=== PATIENT | female | born 1940 | race Caucasian/White ===

== ENCOUNTER 2016-10-28 16:09 | Emergency (ER) | payer MEDICARE ==
[~2016-10-28] VITALS: Ht 165.1 cm; Wt 90.3 kg
[~2016-10-28 16:09] MED LIST: ATOR20TA18 PO; CHOLESTEROL; ESTR0.3T26 PO; LISI-126 PO
--- OUTSIDE RECORDS SUMMARY | 2016-10-28 16:13 | XMS REPORT | Continuity of Care Document ---
Author Author Luda Gupta Ambulatory Address Unknown Phone Unavailable Care Team Providers Care Real Estate Development Manager Name Role Phone Irene Faith PP Unavailable Payers Payer name Insurance type Covered green party ID Authorization(s) Unknown Problems Condition Effective Dates (start - stop) Clinical Status Syncope and collapse - Persistent Vaginitis - *Acute Hypertension, Unspecified - *Chronic Hypothyroidism - *Chronic Hypercholesterolemia - *Chronic Ulcerative colitis - *Chronic Hormone replacement therapy (postmenopausal) - *Stable Skin tag - *Routine Vaginitis - *Acute Benign neoplasm of other specified sites of skin - Hypothyroidism - *Controlled Hypercholesterolemia - *Controlled Hypertension - *Controlled Hyperkalemia - Asymptomatic Candidiasis of vulva and vagina - *Acute Acute renal insufficiency - Asymptomatic Hypothyroidism - *Poor control Hypertension, Unspecified - *Chronic Hypercholesterolemia - *Controlled Hormone replacement therapy (postmenopausal) - *Stable Family History Family Member Diagnosis Age At Onset Status Mother (Unknown) Cancer - thyroid Yes Father (Unknown) Cancer - renal Yes Social History Social History Element Description Quantity alcohol Allergies, Adverse Reactions, Alerts Substance Reaction Severity Status Unknown Medications Medication Instructions Dosage Effective Dates (start - stop) Status Calmoseptine 0.44 %-20.625 % topical ointment apply 1 by Topical route 2 times every effected area 0 - Active Premarin 0.3 mg tablet Take 1 tablet by mouth every day. - Active simvastatin 20 mg tablet Take 1 tablet by mouth every day. - Active Asacol HD 800 mg tablet,delayed release Take 1 capsule by mouth 3 times a day. - Active lisinopril 20 mg-hydrochlorothiazide 25 mg tablet Take 1 tablet by mouth every day. - Active Synthroid 75 mcg tablet take 1 tablet (75MCG) by oral route every day 75 MCG - Active alprazolam 0.5 mg tablet take 1 - 2 tablet (0.5MG) by ORAL route prior to procedure - Active Immunizations Vaccine Date Status Comments Fluzone HD completed - Completed reason: previously given Results Test Name Date and Time Measure Units Reference Range Abnormal Flag Comments Panel Description: Basic Metabolic Panel (BMP) Glucose 16:00:00 76 mg/dL 70-99 BUN 16:00:00 22 mg/dL 10-20 H Creatinine 16:00:00 1.15 mg/dL 0.57-1.11 H Calcium 16:00:00 9.9 mg/dL 8.9-10.5 Sodium 16:00:00 138 mEq/L 135-144 Potassium 16:00:00 3.9 mEq/L 3.5-5.2 Chloride 16:00:00 102 mEq/L 99-111 CO2 16:00:00 25 mEq/L 22-31 Anion Gap 16:00:00 11 3-20 Panel Description: eGFR eGFR 16:00:00 46 mL/min >60 A Multiply eGFR results by 1.21 for race. Panel Description: TSH TSH 16:00:00 3.16 uIU/mL 0.35-4.94 Vital Signs Date / Time: Height Weight Pulse Rate Blood Pressure Temperature /14:35:00 65.00 in 195.80 lbs 64 /min 150/70 mm[Hg] 97.0 F Procedures Procedure Date Unknown Encounters Encounter Location Date Patient Visit [facility] Patient Visit [facility] Patient Visit [facility] Patient Visit [facility] Patient Visit [facility] Patient Visit [facility] Patient Visit [facility] Patient Visit [facility] Patient Visit [facility] Patient Visit [facility] Advance Directives Directive Effective Date Unknown
--- OUTSIDE RECORDS SUMMARY | 2016-10-28 16:13 | XMS REPORT | Referral Summary ---
Author Author [facility] Organization [facility] Address Unknown Phone Unavailable Care Team Providers Care Retort Press Operator Name Role Phone Caterina Thomas Primary Care Physician [phone] Encounter [facility] [id number] Date(s): 02/01/15 - 02/01/15 [facility] [address] [place], [place] [address] Discharge Diagnosis: Serum creatinine elevated Discharge Diagnosis: Osteoporosis screening Discharge Diagnosis: Need for pneumococcal vaccine Discharge Diagnosis: Hormone replacement therapy Discharge Diagnosis: OTHER AND UNSPECIFIED HYPERLIPIDEMIA Discharge Diagnosis: Ulcerative colitis Discharge Diagnosis: UNSPECIFIED ESSENTIAL HYPERTENSION Discharge Diagnosis: UNSPECIFIED HYPOTHYROIDISM Discharge Diagnosis: Abnormal CT Discharge Disposition: 01-Home or Self Care Attending Physician: Caterina Thomas DO Admitting Physician: Caterina Thomas DO Vital Signs Most recent to 1 oldest [Reference Range]: Peripheral Pulse 76 bpm Rate [60-100 bpm] (02/01/15 9:04 AM) Respiratory Rate 18 br/min [14-20 br/min] (02/01/15 9:04 AM) Blood Pressure 120/76 mmHg [90-140/60-90 mmHg] (02/01/15 9:04 AM) Problem List Condition Effective Dates Status Health Status Informant Symptomatic 02/21/10 - 06/30/14 Resolved cholelithiasis(Confi rmed)1 Hormone replacement Active therapy(Confirmed) High < 06/30/14 Resolved cholesterol(Confirme d) Hyperlipidemia(Confi 1989 Active rmed) Hypertension(Confirm Active ed) UNSPECIFIED Active HYPOTHYROIDISM(Confi rmed) Heavy menstrual 1967 - 06/30/14 Resolved bleeding(Confirmed)2 Obesity(Confirmed) Active patient Osteoarthritis(Confi Active rmed) Ulcerative 2003 Active colitis(Confirmed) Fibroids(Confirmed)3 1967 - 06/30/14 Resolved 1laparoscopic cholecystectomy 8-26-10 2TAH and one oophorectomy 3TAH and one oophorectomy Allergies, Adverse Reactions, Alerts No Known Medication Allergies Medications aspirin 81 mg oral tablet 1 tabs, Oral, Daily, 0 Refill(s) Start Date: 07/05/14 Status: Ordered estradiol 0.5 mg oral tablet 0.5 mg 1 tabs, Oral, Daily, # 90 tabs, 3 Refill(s), Pharmacy: [facility], 1 tabs Oral Daily Start Date: 08/08/15 Status: Ordered lisinopril-hydrochlorothiazide 20 mg-25 mg oral tablet 1 tabs, Oral, Daily, # 90 tabs, 3 Refill(s), Pharmacy: [facility] Start Date: 08/08/15 Status: Ordered simvastatin 20 mg oral tablet 20 mg 1 tabs, Oral, Bedtime (once a day), # 90 tabs, 3 Refill(s), Pharmacy: [facility], 1 tabs Oral Bedtime (once a day) Start Date: 08/08/15 Status: Ordered Synthroid 75 mcg (0.075 mg) oral tablet 75 mcg 1 tabs, Oral, Daily, # 90 tabs, 3 Refill(s), Pharmacy: [facility], 1 tabs Oral Daily Start Date: 08/08/15 Status: Ordered Results Hematology Most recent to 1 oldest [Reference Range]: WBC [4.8-10.8 6.5 10*3/uL 10*3/uL] (02/01/15 10:00 AM) RBC [4.00-5.20 4.79 10*6/uL 10*6/uL] (02/01/15 10:00 AM) Hgb [12.0-16.0 13.9 gm/dL gm/dL] (02/01/15 10:00 AM) Hct [37.0-47.0 %] 41.3 % (02/01/15 10:00 AM) MCV [82.0-99.0 fL] 86.2 fL (02/01/15 10:00 AM) MCH [27.0-32.0 pg] 29.0 pg (02/01/15 10:00 AM) MCHC [32.0-36.0 33.7 gm/dL gm/dL] (02/01/15 10:00 AM) RDW [11.5-14.5 %] 14.0 % (02/01/15 10:00 AM) Platelet [150-400 340 10*3/uL 10*3/uL] (02/01/15 10:00 AM) MPV [8.8-14.8 fL] 10.4 fL (02/01/15 10:00 AM) Immature 0.2 % Granulocytes (02/01/15:00 AM) [0.0-1.0 %] Neutrophils [51-75 58 % %] (02/01/15 10:00 AM) Lymphocytes [20-46 28 % %] (02/01/15 10:00 AM) Monocytes [4-11 %] 8 % (02/01/15 10:00 AM) Eosinophils [0-4 %] 5 % *HI* (02/01/15 10:00 AM) Basophils [0-2 %] 1 % (02/01/15 10:00 AM) Neutro Absolute 3.78 10*3 [1.90-7.00 10*3] (02/01/15 10:00 AM) Lymph Absolute 1.85 10*3 [0.80-3.30 10*3] (02/01/15 10:00 AM) Mcintosh Absolute 0.51 10*3 [0.30-1.00 10*3] (02/01/15 10:00 AM) Eos Absolute 0.32 10*3 [0.00-0.50 10*3] (02/01/15 10:00 AM) Baso Absolute 0.04 10*3 [0.00-0.20 10*3] (02/01/15 10:00 AM) Chemistry Most recent to 1 oldest [Reference Range]: Sodium Lvl [135-144 142 mEq/L mEq/L] (02/01/15 10:00 AM) Potassium Lvl 4.6 mEq/L [3.5-5.2 mEq/L] (02/01/15 10:00 AM) Chloride [99-111 105 mEq/L mEq/L] (02/01/15 10:00 AM) CO2 [22-31 mEq/L] 28 mEq/L (02/01/15 10:00 AM) AGAP [3-20] 9 (02/01/15 10:00 AM) BUN [10-20 mg/dL] 26 mg/dL *HI* (02/01/15 10:00 AM) Glucose Lvl [70-99 103 mg/dL mg/dL] *HI* (02/01/15 10:00 AM) Creatinine Lvl 1.22 mg/dL [0.57-1.11 mg/dL] *HI* (02/01/15 10:00 AM) eGFR [>60 mL/min] 43 mL/min 1 *ABN* (02/01/15 10:00 AM) Calcium Lvl 10.1 mg/dL [8.9-10.5 mg/dL] (02/01/15 10:00 AM) Albumin Lvl [3.4-4.8 4.7 gm/dL gm/dL] (02/01/15 10:00 AM) Total Protein 8.0 gm/dL [6.2-8.1 gm/dL] (02/01/15 10:00 AM) Globulin [1.8-4.0 3.3 gm/dL gm/dL] (02/01/15 10:00 AM) ALT [0-55 U/L] 17 U/L (02/01/15 10:00 AM) AST [5-34 U/L] 21 U/L (02/01/15 10:00 AM) Alk Phos [40-150 93 U/L U/L] (02/01/15 10:00 AM) Bili Total [0.2-1.2 0.6 mg/dL mg/dL] (02/01/15 10:00 AM) Chol [0-199 mg/dL] 175 mg/dL 2 (02/01/15 10:00 AM) Trig [0-149 mg/dL] 137 mg/dL (02/01/15 10:00 AM) HDL [40-84 mg/dL] 52 mg/dL (02/01/15 10:00 AM) LDL [0-130 mg/dL] 96 mg/dL (02/01/15 10:00 AM) VLDL Cholesterol 27 mg/dL [0-28 mg/dL] (02/01/15 10:00 AM) Cardiac Risk 3.4 [0.0-5.0] (02/01/15 10:00 AM) TSH with Reflex Free 1.41 T4 [0.35-4.94] (02/01/15 10:00 AM) 1Result Comment: Multiply eGFR results by 1.21 for race. 2Result Comment: 12 hours fasting. Meds taken as directed. Immunizations Vaccine Date Refusal Reason influenza virus vaccine, inactivated 08/08/15 influenza virus vaccine, live 03/22/13 pneumococcal 13-valent conjugate vaccine 02/01/15 Procedures Procedure Date Related Diagnosis Body Site Cholecystectomy 2010 Implantable loop recorder 2010 Intraoperative cholangiogram1 02/21/10 Laparoscopic cholecystectomy2 02/21/10 Colonoscopy3 11/04/07 Knee replacement L 2005 Colonoscopy1989 GAUTAM and one oophorectomy 1967 Knee replacement R 1symptomatic cholelithiasis 2symptomatic cholelithiasis 3Diffuse moderate chronic colitis consisent with lymphocytic colitis. Sigmoid diverticulosis. Plan repeat colonoscopy in 10 years 4Cscope=Colitis Social History Social History Type Response Smoking Status Never smoker Assessment and Plan Extracted from: Title: Ambulatory Patient Education Author: Caterina Thomas DO Date: Hypothyroidism The thyroid is a large gland located in the lower front of your neck. The thyroid gland helps control metabolism. Metabolism is how your body handles food. It controls metabolism with the hormone thyroxine. When this gland is underactive (hypothyroid), it produces too little hormone. CAUSES These include: Absence or destruction of thyroid tissue. Goiter due to iodine deficiency. Goiter due to medications. Congenital defects (since ). Problems with the pituitary. This causes a lack of TSH (thyroid stimulating hormone). This hormone tells the thyroid to turner off more hormone. SYMPTOMS Lethargy (feeling as though you have no energy) Cold intolerance Weight gain (in spite of normal food intake) Dry skin Coarse hair Menstrual irregularity (if severe, may lead to infertility) Slowing of thought processes Cardiac problems are also caused by insufficient amounts of thyroid hormone. Hypothyroidism in the is cretinism, and is an extreme form. It is important that this form be treated adequately and immediately or it will lead rapidly to retarded physical and mental development. DIAGNOSIS To prove hypothyroidism, your caregiver may do blood tests and ultrasound tests. Sometimes the signs are hidden. It may be necessary for your caregiver to watch this illness with blood tests either before or after diagnosis and treatment. TREATMENT Low levels of thyroid hormone are increased by using synthetic thyroid hormone. This is a safe, effective treatment. It usually takes about four weeks to gain the full effects of the medication. After you have the full effect of the medication, it will generally take another four weeks for problems to leave. Your caregiver may start you on low doses. If you have had heart problems the dose may be gradually increased. It is generally not an emergency to get rapidly to normal. HOME CARE INSTRUCTIONS Take your medications as your caregiver suggests. Let your caregiver know of any medications you are taking or start taking. Your caregiver will help you with dosage schedules. As your condition improves, your dosage needs may increase. It will be necessary to have continuing blood tests as suggested by your caregiver. Report all suspected medication side effects to your caregiver. SEEK MEDICAL CARE IF: Seek medical care if you develop: Sweating. Tremulousness (tremors). Anxiety. Rapid weight loss. Heat intolerance. Emotional swings. Diarrhea. Weakness. SEEK IMMEDIATE MEDICAL CARE IF: You develop chest pain, an irregular heart beat (palpitations), or a rapid heart beat. MAKE SURE YOU: Understand these instructions. Will watch your condition. Will get help right away if you are not doing well or get worse. Document Released: 06/15/2006 Document Revised: 09/06/2012 Document Reviewed: [employer] Patient Information 2015 [employer]. This information is not intended to replace advice given to you by your health care provider. Make sure you discuss any questions you have with your health care provider. No follow up information was provided. Extracted from: Title: MARIO ALBERTO/Chronic conditions Author: Caterina Thomas DO Date: 02/01/15 Assessment/Plan 1.Osteoporosis screening Information provided to patient to schedule for a dexa scan. Encouraged regular intake of calcium and vitamin D along with weight bearing exercises. She will return for her medicare wellness exam in 6 months. Ordered: BD Bone Density DEXA Axial Skeleton Office Visit Level 4 Est 81465 2.OTHER AND UNSPECIFIED HYPERLIPIDEMIA Lipid panel due. She will return to have blood work done. Continue on simvastatin at current dosage for now. Ordered: Lipid Panel Office Visit Level 4 Est 74635 3.Ulcerative colitis Stable - continue follow up with Dr. Haines. Continue on the fiber as that seems to have helped her significantly with her syncopal episodes and diarrhea episodes. Ordered: Office Visit Level 4 Est 00144 4.UNSPECIFIED ESSENTIAL HYPERTENSION BP stable. Continue on the lisinopril /hctz. She will return for blood work. Ordered: CBC w/ Differential Comprehensive Metabolic Panel Office Visit Level 4 Est 07706 5.UNSPECIFIED HYPOTHYROIDISM TSH due - she will return for blood work. Continue on levothyroxine for now. Ordered: Office Visit Level 4 Est 09784 TSH with Reflex Free T4 6.Hormone replacement therapy Will attempt to send out the estradiol again to see ifwe can do a prior authorization. Have reviewed the risks associated with mcc hormone replacement and pt expresses understanding. At this point, it is very bothersome to her and would like to get back on hormone replacement daily. Ordered: Office Visit Level 4 Est 35664 7.Need for pneumococcal vaccine pneumococcal 13 administered today. Ordered: Office Visit Level 4 Est 08250 Orders: estradiol, 0.5 mg 1 tabs, Oral, Daily, # 90 tabs, 3 Refill(s), Pharmacy: [facility], 1 tabs Oral Daily
--- OUTSIDE RECORDS SUMMARY | 2016-10-28 16:13 | XMS REPORT | Referral Summary ---
Author Author [facility] Organization [facility] Address Unknown Phone Unavailable Care Team Providers Care Filter Tank Operator Name Role Phone Caterina Thomas Primary Care Physician [phone] Encounter VC Date(s): 08/08/15 - 08/08/15 [facility] [address] [place], [place] [address] Discharge Diagnosis: Medicare annual wellness visit, subsequent Discharge Diagnosis: Osteoporosis screening Discharge Diagnosis: Simple cyst of kidney Discharge Disposition: -Home or Self Care Attending Physician: Caterina Thomas DO Admitting Physician: Caterina Thomas DO Vital Signs Most recent to 1 oldest [Reference Range]: Peripheral Pulse 64 bpm Rate [60-100 bpm] (08/08/15 9:56 AM) Respiratory Rate 16 br/min [14-20 br/min] (08/08/15 9:56 AM) Blood Pressure 130/80 mmHg [90-140/60-90 mmHg] (08/08/15 9:56 AM) SpO2 99 % (08/08/15 9:56 AM) Problem List Condition Effective Dates Status Health Status Informant Symptomatic 02/21/10 - 06/30/14 Resolved cholelithiasis(Confi rmed)1 Hormone replacement Active therapy(Confirmed) High < 06/30/14 Resolved cholesterol(Confirme d) Hyperlipidemia(Confi 1989 Active rmed) Hypertension(Confirm Active ed) UNSPECIFIED Active HYPOTHYROIDISM(Confi rmed) Heavy menstrual 1967 - 06/30/14 Resolved bleeding(Confirmed)2 Obesity(Confirmed) Active patient Osteoarthritis(Confi Active rmed) Ulcerative 2002 Active colitis(Confirmed) Fibroids(Confirmed)3 1967 - 06/30/14 Resolved 1laparoscopic cholecystectomy 02-21-10 2TAH and one oophorectomy 3TAH and one oophorectomy Allergies, Adverse Reactions, Alerts No Known Medication Allergies Medications aspirin 81 mg oral tablet 1 tabs, Oral, Daily, 0 Refill(s) Start Date: 07/05/14 Status: Ordered estradiol 0.5 mg oral tablet 0.5 mg 1 tabs, Oral, Daily, # 90 tabs, 3 Refill(s), Pharmacy: [facility], 1 tabs Oral Daily Start Date: 08/08/15 Status: Ordered lisinopril-hydrochlorothiazide 20 mg-25 mg oral tablet 1 tabs, Oral, Daily, # 90 tabs, 3 Refill(s), Pharmacy: [facility] Start Date: 08/08/15 Status: Ordered simvastatin 20 mg oral tablet 20 mg 1 tabs, Oral, Bedtime (once a day), # 90 tabs, 3 Refill(s), Pharmacy: [facility], 1 tabs Oral Bedtime (once a day) Start Date: 08/08/15 Status: Ordered Synthroid 75 mcg (0.075 mg) oral tablet 75 mcg 1 tabs, Oral, Daily, # 90 tabs, 3 Refill(s), Pharmacy: [facility], 1 tabs Oral Daily Start Date: 08/08/15 Status: Ordered Results No data available for this section Immunizations Vaccine Date Refusal Reason influenza virus vaccine, inactivated 08/08/15 influenza virus vaccine, live 03/22/13 pneumococcal 13-valent conjugate vaccine 02/01/15 Procedures Procedure Date Related Diagnosis Body Site Cholecystectomy 2010 Implantable loop recorder 2010 Intraoperative cholangiogram1 02/21/10 Laparoscopic cholecystectomy2 02/21/10 Colonoscopy3 11/04/07 Knee replacement L 2005 Colonoscopy4 1989 GAUTAM and one oophorectomy 1968 Knee replacement R 1symptomatic cholelithiasis 2symptomatic cholelithiasis 3Diffuse moderate chronic colitis consisent with lymphocytic colitis. Sigmoid diverticulosis. Plan repeat colonoscopy in 10 years 4Cscope=Colitis Social History Social History Type Response Smoking Status Never smoker Assessment and Plan Extracted from: Title: Ambulatory Patient Education Author: Caterina Thomas DO Date: Health Maintenance Adopting a healthy lifestyle and getting preventive care can go a long way to promote health and wellness. Talk with your health care provider about what schedule of regular examinations is right for you. This is a good chance for you to check in with your provider about disease prevention and staying healthy. In between checkups, there are plenty of things you can do on your own. Experts have done a lot of research about which lifestyle changes and preventive measures are most likely to keep you healthy. Ask your health care provider for more information. WEIGHT AND DIET Eat a healthy diet Be sure to include plenty of vegetables, fruits, low-fat dairy products, and lean protein. Do not eat a lot of foods high in solid fats, added sugars, or salt. Get regular exercise. This is one of the most important things you can do for your health. Most adults should exercise for at least 150 minutes each week. The exercise should increase your heart rate and make you sweat (moderate-intensity exercise). Most adults should also do strengthening exercises at least twice a week. This is in addition to the moderate-intensity exercise. Maintain a healthy weight Body mass index (BMI) is a measurement that can be used to identify possible weight problems. It estimates body fat based on height and weight. Your health care provider can help determine your BMI and help you achieve or maintain a healthy weight. For females 20 years of age and older: A BMI below 18.5 is considered underweight. A BMI of 18.5 to 24.9 is normal. A BMI of 25 to 29.9 is considered overweight. A BMI of 30 and above is considered obese. Watch levels of cholesterol and blood lipids You should start having your blood tested for lipids and cholesterol at 20 years of age, then have this test every 5 years. You may need to have your cholesterol levels checked more often if: Your lipid or cholesterol levels are high. You are older than 50 years of age. You are at high risk for heart disease. CANCER SCREENING Lung Cancer Lung cancer screening is recommended for adults 5580 years old who are at high risk for lung cancer because of a history of smoking. A yearly low-dose CT scan of the lungs is recommended for people who: Currently smoke. Have quit within the past 15 years. Have at least a 90-[id number] history of smoking. A pack year is smoking an average of one pack of cigarettes a day for 1 year. Yearly screening should continue until it has been 15 years since you quit. Yearly screening should stop if you develop a health problem that would prevent you from having lung cancer treatment. Breast Cancer Practice breast self-awareness. This means understanding how your breasts normally appear and feel. It also means doing regular breast self-exams. Let your health care provider know about any changes, no matter how small. If you are in your 20s or 30s, you should have a clinical breast exam ( CBE) by a health care provider every 13 years as part of a regular health exam. If you are 40 or older, have a CBE every year. Also consider having a breast X-ray (mammogram) every year. If you have a family history of breast cancer, talk to your health care provider about genetic screening. If you are at high risk for breast cancer, talk to your health care provider about having an MRI and a mammogram every year. Breast cancer gene (BRCA) assessment is recommended for women who have family members with BRCA-related cancers. BRCA-related cancers include: Breast. Ovarian. Tubal. Peritoneal cancers. Results of the assessment will determine the need for genetic counseling and BRCA1 and BRCA2 testing. Cervical Cancer Your health care provider may recommend that you be screened regularly for cancer of the pelvic organs (ovaries, uterus, and vagina). This screening involves a pelvic examination, including checking for microscopic changes to the surface of your cervix (Pap test). You may be encouraged to have this screening done every 3 years, beginning at age 21. For women ages 3065, health care providers may recommend pelvic exams and Pap testing every 3 years, or they may recommend the Pap and pelvic exam, combined with testing for human papilloma virus (HPV), every 5 years. Some types of HPV increase your risk of cervical cancer. Testing for HPV may also be done on women of any age with unclear Pap test results. Other health care providers may not recommend any screening for non women who are considered low risk for pelvic cancer and who do not have symptoms. Ask your health care provider if a screening pelvic exam is right for you. If you have had past treatment for cervical cancer or a condition that could lead to cancer, you need Pap tests and screening for cancer for at least 20 years after your treatment. If Pap tests have been discontinued, your risk factors (such as having a new sexual partner) need to be reassessed to determine if screening should resume. Some women have medical problems that increase the chance of getting cervical cancer. In these cases, your health care provider may recommend more frequent screening and Pap tests. Colorectal Cancer This type of cancer can be detected and often prevented. Routine colorectal cancer screening usually begins at 50 years of age and continues through 75 years of age. Your health care provider may recommend screening at an earlier age if you have risk factors for colon cancer. Your health care provider may also recommend using home test kits to check for hidden blood in the stool. A small camera at the end of a tube can be used to examine your colon directly (sigmoidoscopy or colonoscopy). This is done to check for the earliest forms of colorectal cancer. Routine screening usually begins at age 50. Direct examination of the colon should be repeated every 510 years through 75 years of age. However, you may need to be screened more often if early forms of precancerous polyps or small growths are found. Skin Cancer Check your skin from head to toe regularly. Tell your health care provider about any new moles or changes in moles, especially if there is a change in a mole's shape or color. Also tell your health care provider if you have a mole that is larger than the size of a pencil eraser. Always use sunscreen. Apply sunscreen liberally and repeatedly throughout the day. Protect yourself by wearing long sleeves, pants, a wide-brimmed hat, and sunglasses whenever you are outside. HEART DISEASE, DIABETES, AND HIGH BLOOD PRESSURE Have your blood pressure checked at least every 12 years. High blood pressure causes heart disease and increases the risk of stroke. If you are between 55 years and 79 years old, ask your health care provider if you should take aspirin to prevent strokes. Have regular diabetes screenings. This involves taking a blood sample to check your fasting blood sugar level. If you are at a normal weight and have a low risk for diabetes, have this test once every three years after 45 years of age. If you are overweight and have a high risk for diabetes, consider being tested at a younger age or more often. PREVENTING INFECTION Hepatitis B If you have a higher risk for hepatitis B, you should be screened for this virus. You are considered at high risk for hepatitis B if: You were born in a country where hepatitis B is common. Ask your health care provider which countries are considered high risk. Your parents were born in a high-risk country, and you have not been immunized against hepatitis B (hepatitis B vaccine). You have HIV or AIDS. You use needles to inject street drugs. You live with someone who has hepatitis B. You have had sex with someone who has hepatitis B. You get hemodialysis treatment. You take certain medicines for conditions, including cancer, organ transplantation, and autoimmune conditions. Hepatitis C Blood testing is recommended for: Everyone born from 1945 through 1965. Anyone with known risk factors for hepatitis C. Sexually transmitted infections (STIs) You should be screened for sexually transmitted infections (STIs) including gonorrhea and chlamydia if: You are sexually active and are younger than 24 years of age. You are older than 24 years of age and your health care provider tells you that you are at risk for this type of infection. Your sexual activity has changed since you were last screened and you are at an increased risk for chlamydia or gonorrhea. Ask your health care provider if you are at risk. If you do not have HIV, but are at risk, it may be recommended that you take a prescription medicine daily to prevent HIV infection. This is called pre- exposure prophylaxis (PrEP). You are considered at risk if: You are sexually active and do not regularly use condoms or know the HIV status of your partner(s). You take drugs by injection. You are sexually active with a partner who has HIV. Talk with your health care provider about whether you are at high risk of being infected with HIV. If you choose to begin PrEP, you should first be tested for HIV. You should then be tested every 3 months for as long as you are taking PrEP. If you are premenopausal and you may become , ask your health care provider about preconception counseling. If you may become , take 400 to 800 micrograms (mcg) of folic acid every day. If you want to prevent , talk to your health care provider about control (contraception). OSTEOPOROSIS AND MENOPAUSE Osteoporosis is a disease in which the bones lose minerals and strength with aging. This can result in serious bone fractures. Your risk for osteoporosis can be identified using a bone density scan. If you are 65 years of age or older, or if you are at risk for osteoporosis and fractures, ask your health care provider if you should be screened. Ask your health care provider whether you should take a calcium or vitamin D supplement to lower your risk for osteoporosis. Menopause may have certain physical symptoms and risks. Hormone replacement therapy may reduce some of these symptoms and risks. Talk to your health care provider about whether hormone replacement therapy is right for you. HOME CARE INSTRUCTIONS Schedule regular health, dental, and eye exams. Stay current with your immunizations. Do not use any tobacco products including cigarettes, chewing tobacco, or electronic cigarettes. If you are , do not drink alcohol. If you are , limit how much and how often you drink alcohol. Limit alcohol intake to no more than 1 drink per day for non women. One drink equals 12 ounces of beer, 5 ounces of wine, or 1 ounces of hard liquor. Do not use street drugs. Do not share needles. Ask your health care provider for help if you need support or information about quitting drugs. Tell your health care provider if you often feel depressed. Tell your health care provider if you have ever been abused or do not feel safe at home. This information is not intended to replace advice given to you by your health care provider. Make sure you discuss any questions you have with your health care provider. Document Released: 12/29/2011 Document Revised: 04/03/2015 Document Reviewed: [facility] Patient Information 2015 [employer]. No follow up information was provided. Extracted from: Title: AWE-Medicare Author: Caterina Thomas DO Date: 08/08/15 Assessment/Plan 1.Medicare annual wellness visit, subsequent Routine physical performed. Mammogram is up to date. Colonoscopy is up to date. Vaccines reviewed - updated on flu, and will check pricing on Td and return to have this done. DEXA due and she will schedule this. Senior health assessment reviewed. DPOA and living will are in place. Education provided. Ordered: Annual Wellness exam Subsequent G0439 2.Simple cyst of kidney Imaging reviewed and recommendation to recheck lesion in 6-12 months after imaging in January. Pt was given information to schedule and she will schedule to have this repeated in the summer. Ordered: Annual Wellness exam Subsequent G0439 US Retroperitoneal Complete 3.Osteoporosis screening Information for dexa provided and she will call to make an appointment. Encouraged regular exercise and calcium/vitamin D supplementation. Ordered: Annual Wellness exam Subsequent G0439 BD Bone Density DEXA Axial Skeleton 4.Need for vaccination Updated on flu shot. Will check on pricing for TD and administer at next appt. Ordered: Annual Wellness exam Subsequent G0439 Orders: estradiol, 0.5 mg 1 tabs, Oral, Daily, # 90 tabs, 3 Refill(s), [facility], 1 tabs Oral Daily levothyroxine, 75 mcg 1 tabs, Oral, Daily, # 90 tabs, 3 Refill(s), Pharmacy: [facility], 1 tabs Oral Daily lisinopril-hydrochlorothiazide, 1 tabs, Oral, Daily, # 90 tabs, 3 Refill(s), Pharmacy: [facility] simvastatin, 20 mg 1 tabs, Oral, Bedtime (once a day), # 90 tabs, 3 Refill(s) , Pharmacy: [facility], 1 tabs Oral Bedtime (once a day) CBC w/ Differential Comprehensive Metabolic Panel Lipid Panel TSH with Reflex Free T4
--- OUTSIDE RECORDS SUMMARY | 2016-10-28 16:13 | XMS REPORT | Continuity of Care Document ---
Author Author [facility] Organization [facility] Address Unknown Phone Unavailable Allergies Active Description Code Type Severity Reaction Onset Reported/Identified Relationship to Patient Clinical Status Yes No Allergy Information Drug Allergy N/A N/A 07/19/2013 Medications Problems Date Dx Coded Attending Type Code Diagnosis Diagnosed By 07/19/2013 Guevara Gonzalez MD Final 556.9 ULCERATIVE COLITIS NOS 07/19/2013 Guevara Gonzalez MD Final 780.2 SYNCOPE COLLAPSE Procedures Results Encounters ACCT No. Visit Date/Time Discharge Status Pt. Type Provider Facility Loc./Unit Complaint [id number] 07/19/2013 14:49:00 2013 17:25:00 DIS Emergency Guevara Gonzalez MD [facility] [address] [facility]
--- OUTSIDE RECORDS SUMMARY | 2016-10-28 16:13 | XMS REPORT | Referral Summary ---
Author Author [facility] Organization [facility] Address Unknown Phone Unavailable Care Team Providers Care Manager Payment Name Role Phone Caterina Thomas Primary Care Physician [phone] Encounter VC Date(s): 05/01/16 - 05/01/16 [facility] [address] [place], [place] [address] Discharge Diagnosis: Low back pain Discharge Diagnosis: Depression Discharge Diagnosis: Chronic kidney disease Discharge Disposition: 01-Home or Self Care Attending Physician: Caterina Thomas DO Admitting Physician: Caterina Thomas DO Vital Signs Most recent to 1 oldest [Reference Range]: Peripheral Pulse 64 bpm Rate [60-100 bpm] (05/01/16 8:59 AM) Respiratory Rate 16 br/min [14-20 br/min] (05/01/16 8:59 AM) Blood Pressure 110/80 mmHg [90-140/60-90 mmHg] (05/01/16 8:59 AM) Problem List Condition Effective Dates Status Health Status Informant Symptomatic 02/21/10 - 06/30/14 Resolved cholelithiasis(Confi rmed)1 Hormone replacement Active therapy(Confirmed) High < 06/30/14 Resolved cholesterol(Confirme d) Hyperlipidemia(Confi 1989 Active rmed) Hypertension(Confirm Active ed) UNSPECIFIED Active HYPOTHYROIDISM(Confi rmed) Heavy menstrual 1967 - 06/30/14 Resolved bleeding(Confirmed)2 Depression(Confirmed Active ) Obesity(Confirmed) Active patient Osteoarthritis(Confi Active rmed) Ulcerative 2003 Active colitis(Confirmed) Fibroids(Confirmed)3 1967 - 06/30/14 Resolved 1laparoscopic cholecystectomy 02-21-10 2TAH and one oophorectomy 3TAH and one oophorectomy Allergies, Adverse Reactions, Alerts No Known Medication Allergies Medications aspirin 81 mg oral tablet 1 tabs, Oral, Daily, 0 Refill(s) Start Date: 07/05/14 Status: Ordered Cymbalta 30 mg oral delayed release capsule See Instructions, Take one capsule daily, # 90 caps, 3 Refill(s), Pharmacy: [facility], Take one capsule daily Start Date: 05/01/16 Status: Ordered estradiol 0.5 mg oral tablet 0.5 mg 1 tabs, Oral, Daily, # 90 tabs, 3 Refill(s), Pharmacy: [facility], 1 tabs Oral Daily Start Date: 08/08/15 Status: Ordered lisinopril-hydrochlorothiazide 20 mg-25 mg oral tablet 1 tabs, Oral, Daily, # 90 tabs, 3 Refill(s), Pharmacy: [facility] Start Date: 08/08/15 Status: Ordered meloxicam 15 mg oral tablet 15 mg 1 tabs, Oral, Daily, # 90 tabs, 0 Refill(s), Pharmacy: [id number], 1 tabs Oral Daily Start Date: 03/31/16 Status: Ordered simvastatin 20 mg oral tablet 20 mg 1 tabs, Oral, Bedtime (once a day), # 90 tabs, 3 Refill(s), Pharmacy: [facility], 1 tabs Oral Bedtime (once a day) Start Date: 08/08/15 Status: Ordered Synthroid 75 mcg (0.075 mg) oral tablet 75 mcg 1 tabs, Oral, Daily, # 90 tabs, 3 Refill(s), Pharmacy: [facility], 1 tabs Oral Daily Start Date: 08/08/15 Status: Ordered Results No data available for this section Immunizations Vaccine Date Refusal Reason influenza virus vaccine, inactivated 05/01/16 influenza virus vaccine, inactivated 08/08/15 influenza virus vaccine, live 03/22/13 pneumococcal 13-valent conjugate vaccine 02/01/15 pneumococcal 23-polyvalent vaccine 05/01/16 Procedures Procedure Date Related Diagnosis Body Site Cholecystectomy 2011 Implantable loop recorder 2011 Intraoperative cholangiogram1 02/21/10 Laparoscopic cholecystectomy2 02/21/10 Colonoscopy3 11/04/07 Knee replacement L 2005 Colonoscopy1989 GAUTAM and one oophorectomy 1968 Knee replacement R 1symptomatic cholelithiasis 2symptomatic cholelithiasis 3Diffuse moderate chronic colitis consisent with lymphocytic colitis. Sigmoid diverticulosis. Plan repeat colonoscopy in 10 years 4Cscope=Colitis Social History Social History Type Response Smoking Status Never smoker Assessment and Plan Extracted from: Title: Depression/back pain f/u Author: Caterina Thomas DO Date: 05/01/16 Assessment/Plan 1.Depression Continue on the 30mg dosage of the cymbalta as it has helped tremendously. Recheck in July at her AWE. Ordered: Office Visit Level 3 Est 76944 2.Low back pain Doing well on the cymbalta. Continue intermittent use of meloxicam and continue stretching. Ordered: Office Visit Level 3 Est 51522 3.Chronic kidney disease Creatinine is stable. Encouraged her to push fluids and try to minimize the amount of nsaids she takes. Will continue to monitor for now. Ordered: Office Visit Level 3 Est [id number]
[2016-10-28 16:14] VITALS: TEMP 97.7; Ht 165.1 cm; Wt 90.3 kg
--- OUTSIDE RECORDS SUMMARY | 2016-10-28 16:14 | XMS REPORT | Referral Summary ---
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 Name Role Phone Caterina Thomas Primary Care Physician [phone] Encounter VC Date(s): 03/31/16 - 03/31/16 [facility] [address] [place], [place] [address] Discharge Diagnosis: Depression Discharge Diagnosis: Hyperlipidemia Discharge Diagnosis: UNSPECIFIED HYPOTHYROIDISM Discharge Diagnosis: Hypertension Discharge Diagnosis: Low back pain Discharge Disposition: 01-Home or Self Care Attending Physician: Caterina Thomas DO Vital Signs Most recent to 1 oldest [Reference Range]: Peripheral Pulse 76 bpm Rate [60-100 bpm] (03/31/16 3:10 PM) Respiratory Rate 18 br/min [14-20 br/min] (03/31/16 3:10 PM) Blood Pressure 114/74 mmHg [90-140/60-90 mmHg] (03/31/16 3:10 PM) Problem List Condition Effective Dates Status Health [...] mg oral delayed release capsule See Instructions, 1 cap daily x 1 week and then increase to 2 caps daily, # 60 caps, 0 Refill(s), Pharmacy: [id number], 1 cap daily x 1 week and then increase to 2 caps daily Start Date: 03/31/16 Status: Ordered estradiol 0.5 mg oral tablet 0.5 mg 1 tabs, Oral, Daily, # 90 tabs, 3 Refill(s), Pharmacy: [facility], 1 tabs Oral Daily Start Date: 08/08/15 Status: Ordered lisinopril-hydrochlorothiazide 20 mg-25 mg oral tablet 1 tabs, Oral, Daily, # 90 tabs, 3 Refill(s), Pharmacy: [facility] Start Date: 08/08/15 Status: Ordered meloxicam 15 mg oral tablet 15 mg 1 tabs, Oral, Daily, # 90 tabs, 0 Refill(s), Pharmacy: [id number], 1 tabs Oral Daily Start Date: 03/31/16 Status: Ordered simvastatin 20 mg oral tablet 20 mg 1 tabs, Oral, Bedtime (once a day), # 90 tabs, 3 Refill(s), Pharmacy: [facility], 1 tabs Oral Bedtime (once a day) Start Date: 08/08/15 Status: Ordered Synthroid 75 mcg (0.075 mg) oral tablet 75 mcg 1 tabs, Oral, Daily, # 90 tabs, 3 Refill(s), Pharmacy: [facility], 1 tabs Oral Daily Start Date: [...] smoker Assessment and Plan Extracted from: Title: Chronic conditions f/u Author: Caterina Thomas DO Date: 03/31/16 Assessment/Plan 1.Low back pain Will trial on meloxicam to see if this will help. She has declined physical therapy or option for epidural at this time. Will start on cymbalta to see if this will help with her pain and mood. Recheck in 1 month. Ordered: Office Visit Level 4 Est 15463 2.Depression Start on cymbalta. Have reviewed side effects of the medication. Will start on 1 tab daily x1 week and then increase to 2 tabs a day. She willseek support from family and friends. Recheck in 1 month. Ordered: Office Visit Level 4 Est 85378 3.Hyperlipidemia She will return fasting to havelipid panel checked. Continue on simvastatin at current dosage for now. Ordered: Office Visit Level 4 Est 10378 4.Hypertension BP stable. She will return for blood work. Continue on current medication. Ordered: Office Visit Level 4 Est 25307 5.UNSPECIFIED HYPOTHYROIDISM TSh due. Continue on levothyroxine. Ordered: Office Visit Level 4 Est [id number]
--- NOTE | 2016-10-28 16:30 | NUR ---
PHYSICIAN VISIT DR. GARCIA IN TO SEE PATIENT.
--- NOTE | 2016-10-28 16:38 | NUR ---
CT TRANSPORTED TO CT [facility]IA [facility] PER SENIOR TECHNICAL SUPPORT ANALYST.
[2016-10-28] MEDS ORDERED: ESTR0.5T4 PO (16:45)
[2016-10-28] MEDS ORDERED: LEVO75TA10 PO (16:45)
[2016-10-28] MEDS ORDERED: DULO60CA56 PO (16:45)
[2016-10-28] MEDS ORDERED: LISI1TAB13 (16:45)
[2016-10-28] MEDS ORDERED: SIMV20TA6 PO (16:45)
--- OUTSIDE RECORDS SUMMARY | 2016-10-28 16:45 | XMS REPORT | Continuity of Care Document ---
Author Author [facility] Organization [facility] Address Unknown Phone Unavailable Allergies Active Description [...] Status Pt. Type Provider Facility Loc./Unit Complaint [id number] 07/19/2013 14:49:00 2013 17:25:00 DIS Emergency Guevara Gonzalez MD [facility] [address] [facility]
--- NOTE | 2016-10-28 16:47 | ERPDOC ---
Departure Disposition Decision Date: October 28, 2016 Disposition Decision Time: 17:22 Disposition: 01 DISCHARGED HOME, SELF-CARE Impression Impression Impression: Primary Impression: Nasal bone fracture Encounter type: initial encounter Fracture type: closed Qualified Codes: S02.2XXA - Fracture of nasal bones, initial encounter for closed fracture Additional Impressions: Abrasion head Facial bruising Encounter type: initial encounter Qualified Codes: S00.83XA - Contusion of other part of head, initial encounter Severity: Mild Condition: Stable Seen By: Physician only Referrals: [facility] (Family) 1 Week Patient Instructions: Nasal Fracture (ED) Problems/Meds/Labs Reviewed?: Yes Medications reviewed and manag: Yes Additional Instructions: You have a nondisplaced nasal fracture. You will need to follow up with your doctor; if you need referral to ENT, your doctor can refer you. Ice, naproxen, and tylenol will help with swelling and pain. Follow up care ordered?: Yes Mental Status: Alert, Oriented HPI - Fall/Injury General Chief Complaint: Fall Stated Complaint: FALL Time Seen by Provider: 16:27 Source: patient Exam Limitations: no limitations HPI - Fall/Injury Initial Comments 76yo woman presents to the ER with facial injuries. Pt was attending her PT appt for weakness/trouble walking. Pt tripped over the curb while leaving the appt, fell, and hit her face. Is here for evaluation for 'injuries'. Occurred At: other Onset: Rapid Duration: 1 hr Severity: moderate Injuries/Pain Location: face 1 - Abrasion 2 - Abrasion 3 - Ecchymosis 4 - Swelling Context: tripped Loss of Consciousness: no loss of consciousness Modifying Factors: IMPROVES WITH: cold therapy, immobilization Associated Symptoms: denies symptoms Hx of Similar Symptoms: No Allergies: Coded Allergies: No Known Drug Allergies (Verified Allergy, Unknown, 10/28/16) Past History Past Medical History Metabolic: hypercholesterolemia, hypertension, other GI: gallbladder disease Surgical History General: gallbladder Reproductive/: hysterectomy Family History Family PMH: FOUND: cancer Vaccines Hx Influenza Vaccination: Yes (MAR 2009) Hx Pneumococcal Vaccination: No Review of Systems ENMT Nose: other (swelling), pain Integumentary Skin: other (Abrasions) All other Systems All Other Systems: Reviewed and Negative Physical Exam General General Nourishment: well nourished, well developed, appears stated age, no acute distress, adult, obese General Body Habitus: well groomed Vitals and Pain Weight: Kilograms: Height (feet): Height (inches): Triage Pain Scale: RN VS reviewed by Provider: Yes Normal Exams: Eyes: Pupils are PERRLA w/ EOMI, No scleral icterus, irritation ENMT: No facial trauma, nasal exudates, pharyngeal erythema Neck: Full range of motion, without adenopathy, JVD Lymphatic: No lymphadenopathy Musculoskeletal: No tenderness, or deformity noted Integumentary: No rashes, hives, or bruising noted Neurologic: Patient is alert, and oriented Psychiatric: Patient exhibits, appropriate attention Respiratory (brief) Respiratory: FOUND: clear all lee, equal bilaterally, symmetrical, NOT FOUND : rales, wheezes Cardiovascular (brief) Cardiac: FOUND: regular rate, regular rhythm, NOT FOUND: click, gallop, murmur , pedal edema, peripheral edema, rub Capillary Refill: <2 sec Pulses: all distal extremities, equal, strong Abdomen (brief) Abdominal Brief: FOUND: bowel normo active x4, soft, NOT FOUND: distended, hepatosplenomegaly, pulsatile mass, tender Differential Diagnoses Considering: Abrasion, Concussion, Contusion, Fracture Progress Results/Orders Orders Procedure Category Date Status Time Ct Maxillofacial W/O CT 10/28/16 Resulted Contrast 16:27 Progress Progress Pt with non-displaced nasal fx. Discussed dx, prognosis, tx, and need for f/u with pt, who voiced understanding. CT CT : CT: Other (Maxillofacial) Interpretation: Abnormal (nondisplaced left nasal arch fracture), Reviewed Written Report OCTOBERUSMAN DO October 28, 2016 16:47 CT: Other (Maxillofacial) Interpretation: Abnormal (nondisplaced left nasal arch fracture), Reviewed Written Report OCTOBERUSMAN DO October 28, 2016 16:47
--- NOTE | 2016-10-28 17:05 | DI ---
Indication: ITS.REASON: Fall; facial injuries PROCEDURE: CT MAXILLOFACIAL W/O CONTRAST: Encounter: Initial Comparison: None Technique: Axial noncontrast CT images through the mid face were performed with coronal and sagittal two-dimensional reformats. Automated Exposure Control and Iterative Reconstruction dose reducing techniques were utilized. Findings: Subtle irregularity of the left anterior nasal arch. No additional area concerning for acute fracture. There is soft tissue swelling in the left supraorbital frontal region. Evidence of bilateral cataract surgeries. No intraconal hematoma. The paranasal sinuses are grossly clear. No significant nasal septal deviation or spurring. Impression: Age indeterminate nondisplaced left nasal arch fracture .
[2016-10-28 17:35] VITALS: BP 173/76; PULSE 64; RESP 16; O2SAT 97
== END 2016-10-28 17:36 | disposition home or self-care (01) ==
LOC: ED 16:09
DX: S02.2XXA Fracture of nasal bones, initial encounter for closed fracture (principal); S00.83XA Contusion of other part of head, initial encounter; S00.81XA Abrasion of other part of head, initial encounter; W01.0XXA Fall on same level from slipping, tripping and stumbling without subsequent striking against object, initial encounter; Y93.9 Activity, unspecified; Y92.238 Other place in hospital as the place of occurrence of the external cause; Y99.8 Other external cause status